=== PATIENT | female | born 2000 | race Hispanic/Latino ===

== ENCOUNTER 2023-11-08 18:20 | Emergency (ER) | payer OTHER ==
[~2023-11-08] VITALS: Ht 167.6 cm; Wt 124.7 kg
[2023-11-08] MEDS ORDERED: ESTARYLLA1 EACH PO (19:26)
[2023-11-08 19:56] VITALS: BP 155/104
== END 2023-11-08 20:10 | disposition home or self-care (01) ==
LOC: ED 18:20
DX: T19.2XXA Foreign body in vulva and vagina, initial encounter (principal); W44.8XXA Other foreign body entering into or through a natural orifice, initial encounter; Z97.5 Presence of (intrauterine) contraceptive device
CPT/HCPCS: 99283